=== PATIENT | male | born 1985 | race Caucasian/White ===

== ENCOUNTER 2021-01-17 11:14 | Emergency (ER) | payer SELFPAY ==
[~2021-01-17] VITALS: Ht 182.9 cm; Wt 77.1 kg
[2021-01-17] MEDS ORDERED: METHOCARBAMOL750 MG PO ×2 (12:35→13:35)
[2021-01-17] MEDS ORDERED: NAPROXEN500 MG PO (12:35)
[2021-01-17] MEDS ORDERED: NAPROSYN500 MG PO (13:35)
[2021-01-17 14:57] VITALS: BP 129/74
== END 2021-01-17 13:53 | disposition home or self-care (01) ==
LOC: ER 11:23
DX: M54.2 Cervicalgia (principal); M54.50 Low back pain, unspecified
CPT/HCPCS: 72040; 72100; 99283